=== PATIENT | male | born 1985 | race Two or more races ===

== ENCOUNTER 2021-04-05 03:21 | Emergency (ER) | payer SELFPAY ==
[~2021-04-05] VITALS: Ht 172.7 cm; Wt 74.8 kg
[2021-04-05 04:10] LABS: Urine Bacteria FEW /hpf (None Seen); Urine Blood TRACE /uL (Negative); Urine Mucus FEW (None Seen); Urine Specific Gravity 1.024 (1.001-1.035); Urine WBC 5 /hpf (0 - 3)
[2021-04-05 04:13] LABS: Basophils # (auto) 0.1 10 ^3/uL (0-0.2); Eosinophils # (auto) 0.4 10 ^3/uL (0-0.8); Eosinophils % (auto) 2.9 % (0.0-7.0); Hemoglobin 16.6 g/dL (13.5-17.5); Lymphocytes # (auto) 4.5 10 ^3/uL (0.4-5.4); Lymphocytes % (auto) 35.8 % (10.0-50.0); Mean Corpuscular Hemoglobin 32.3 pg (28.0-32.0); Mean Corpuscular Hgb Conc. 33.9 g/dL (32.0-36.0); Mean Corpuscular Volume 95.1 fL (80.0-100.0); Monocytes # (auto) 1.1 10 ^3/uL (0-1.3); Neutrophils # (auto) 6.5 10 ^3/uL (1.6-8.6); Neutrophils % (auto) 51.3 % (37.0-80.0); Nucleated Red Blood Cells % 0.1 %; Red Blood Cells 5.15 10^6/uL (4.5-5.90); Red Cell Distribution Width 13.8 % (11.8-14.3); White Blood Cell 12.7 10^3/uL (4.4-10.8)
[2021-04-05] MEDS ORDERED: FAMOTIDINE (10MG/ML) 2ML VL IV ONE (04:15)
[2021-04-05] MEDS ORDERED: METOCLOPRAMIDE HCL 5MG/ml INJ 2ml VIAL IV ONE (04:15)
[2021-04-05 04:26] LABS: BUN/Creatinine Ratio 12.4; Calcium 8.7 mg/dL (8.5-10.1); Potassium 3.9 mmol/L (3.5-5.1)
[2021-04-05 04:28] LABS: Bilirubin, Total 0.4 mg/dL (0.2-1.0); Total Protein 8.1 g/dL (6.4-8.2)
[2021-04-05] MEDS ORDERED: SODIUM CHLORIDE 0.9% 1,000 ML IV ONE ×3 (04:45→08:45)
[2021-04-05] MEDS ORDERED: IOHEXOL 300 MG/ML 100ML BOTTLE IJ ONE (05:00)
[2021-04-05] MEDS ORDERED: MORPHINE SULFATE 4 MG/ML SYR/VIAL IV ONE (05:00)
[2021-04-05] MEDS ORDERED: LIDOCAINE 5% TOPICAL PATCH TOP ONE (05:30)
[2021-04-05] MEDS ORDERED: KETOROLAC TROMETH 30 MG/ML 1ML VIAL IV ONE (08:45)
[2021-04-05 10:00] VITALS: BP 104/69
== END 2021-04-05 10:37 | disposition home or self-care (01) ==
LOC: ER 03:31
DX: M54.5 Low back pain (principal)
CPT/HCPCS: 36415; 72131; 74177; 80053; 81001; 83605; 83690; 85025; 96361; 96374; 96375; 99285; J1885; J2765; J3490; J7030; Q9967